=== PATIENT | male | born 1960 | race Asian ===

== ENCOUNTER 2016-12-22 17:38 | Outpatient (CLI) | payer OTHER ==
[~2016-12-22 17:38] MED LIST: ALBUTEROL0.083 % IN; BUDE1AER5 INH; CARDURA8 MG PO; CARV25TA PO; CLARITIN10 M1 PO; COZAAR100 MG PO; D32000 UNIT OR; FAMOTIDINE40 MG PO; FURO40TA93 PO; HYDRALAZINE50 MG PO; LEVEMIR SC; LISI20TA11 PO; MENS MULTI OR; NASONEX50 MCG/AC; NOVOLOG100 MG/ML SC; PANT40TA PO; PRED10TA27 PO; PROVENTIL IN; SIMV40TA57; STOOL SOFTNR100 MG OR; TIOTCAP2 INH
== END 2016-12-22 17:43 | disposition short-term general hospital (02) ==
LOC: AMB 17:38
DX: R06.02 Shortness of breath (principal); R07.89 Other chest pain
CPT/HCPCS: A0425; A0427

== ENCOUNTER 2016-12-22 17:44 | Emergency (ER) | payer OTHER ==
[~2016-12-22] VITALS: Ht 180.3 cm; Wt 130.6 kg
[2016-12-22 18:00] VITALS: TEMP 99
[2016-12-22 18:30] LABS: PLATELET COUNT 164 K/uL (142-355)
[2016-12-22 18:43] LABS: POTASSIUM 4.7 mmol/L (3.6-5.2)
[2016-12-22 19:37] VITALS: BP 143/88
== END 2016-12-22 20:00 | disposition home or self-care (01) ==
LOC: ED 17:44
DX: J44.1 Chronic obstructive pulmonary disease with (acute) exacerbation (principal); I27.2 Other secondary pulmonary hypertension; R60.9 Edema, unspecified; R06.02 Shortness of breath
CPT/HCPCS: 36415; 80053; 82550; 83880; 84484; 85027; 93005; 99283

== ENCOUNTER 2017-02-03 17:53 | Outpatient (CLI) | payer OTHER ==
[2017-02-03] MEDS ORDERED: SPIRONOLACT50 MG PO (18:28)
[2017-02-03] MEDS ORDERED: HUMALOG KWI100 MG/ML SC (18:32)
== END 2017-02-03 17:57 | disposition short-term general hospital (02) ==
LOC: AMB 17:53
DX: J44.1 Chronic obstructive pulmonary disease with (acute) exacerbation (principal); R06.02 Shortness of breath
CPT/HCPCS: A0425; A0427

== ENCOUNTER 2017-02-03 17:57 | Inpatient (IN) | payer OTHER ==
[~2017-02-03] VITALS: Ht 180.3 cm; Wt 136.1 kg
[2017-02-03 18:10] VITALS: BP 151/107; TEMP 98.6
[2017-02-03 18:22] LABS: PLATELET COUNT 173 K/uL (142-355)
[2017-02-03] MEDS ORDERED: SPIRONOLACT50 MG PO (18:28)
[2017-02-03] MEDS ORDERED: HUMALOG KWI100 MG/ML SC (18:32)
[2017-02-03 23:15] VITALS: BP 107/69; TEMP 97
[2017-02-03 23:30] VITALS: BP 90/60
[2017-02-03 23:45] VITALS: BP 80/45
[2017-02-04] VITALS (38 sets, daily range): BP systolic 81–142; BP diastolic 50–110; TEMP 94.5–98.9; Ht 180.3 cm; Wt 136.1 kg
[2017-02-04 02:12] LABS: PARTIAL THROMBOPLASTIN TIME 21.6 SECONDS (24.5-33.6)
[2017-02-04 02:13] LABS: PLATELET COUNT 116 K/uL (142-355)
[2017-02-04 02:31] LABS: POTASSIUM 6.5 mmol/L (3.6-5.2)
[2017-02-04 09:43] LABS: PLATELET COUNT 156 K/uL (142-355)
[2017-02-04 10:02] LABS: POTASSIUM 4.7 mmol/L (3.6-5.2)
[2017-02-05] VITALS (24 sets, daily range): BP systolic 114–156; BP diastolic 80–116; TEMP 97.7–99.9
[2017-02-05 06:13] LABS: PLATELET COUNT 172 K/uL (142-355)
[2017-02-05 06:30] LABS: POTASSIUM 3.7 mmol/L (3.6-5.2)
[2017-02-06] VITALS (24 sets, daily range): BP systolic 105–146; BP diastolic 78–107; TEMP 98.1–99
[2017-02-06 06:09] LABS: POTASSIUM 3.2 mmol/L (3.6-5.2)
[2017-02-06 06:27] LABS: PLATELET COUNT 176 K/uL (142-355)
[2017-02-07] VITALS (23 sets, daily range): BP systolic 90–150; BP diastolic 63–103; TEMP 98.1–98.8
[2017-02-07 06:40] LABS: POTASSIUM 4.4 mmol/L (3.6-5.2)
[2017-02-07 06:46] LABS: PLATELET COUNT 154 K/uL (142-355)
[2017-02-08] VITALS (21 sets, daily range): BP systolic 94–155; BP diastolic 65–99; TEMP 97.7–98.8
[2017-02-08 06:48] LABS: POTASSIUM 3.6 mmol/L (3.6-5.2)
[2017-02-08 07:03] LABS: PLATELET COUNT 154 K/uL (142-355)
[2017-02-09] VITALS (14 sets, daily range): BP systolic 104–166; BP diastolic 73–96; TEMP 98.1–99.9
[2017-02-09 06:22] LABS: PLATELET COUNT 162 K/uL (142-355)
== END 2017-02-09 18:55 | disposition short-term general hospital (02) | DRG 207 ==
LOC: ED 17:57 → ICU 21:10
PROVIDERS: Emergency Medicine
PROC: 5A1955Z Respiratory Ventilation, Greater than 96 Consecutive Hours (ICD-10-PCS; principal; 2017-02-03)
PROC: 0BH17EZ Insertion of Endotracheal Airway into Trachea, Via Natural or Artificial Opening (ICD-10-PCS; 2017-02-03)
PROC: 05H533Z Insertion of Infusion Device into Right Subclavian Vein, Percutaneous Approach (ICD-10-PCS; 2017-02-04)
PROC: 0B958ZX Drainage of Right Middle Lobe Bronchus, Via Natural or Artificial Opening Endoscopic, Diagnostic (ICD-10-PCS; 2017-02-09)
DX: J96.02 Acute respiratory failure with hypercapnia (principal); N17.8 Other acute kidney failure; E03.8 Other specified hypothyroidism; R91.8 Other nonspecific abnormal finding of lung field; E87.0 Hyperosmolality and hypernatremia; E88.09 Other disorders of plasma-protein metabolism, not elsewhere classified; D64.89 Other specified anemias; E87.5 Hyperkalemia; I12.9 Hypertensive chronic kidney disease with stage 1 through stage 4 chronic kidney disease, or unspecified chronic kidney disease; N18.3 Chronic kidney disease, stage 3 (moderate); H05.20 Unspecified exophthalmos; T68.XXXA Hypothermia, initial encounter; J44.1 Chronic obstructive pulmonary disease with (acute) exacerbation; J18.8 Other pneumonia, unspecified organism; I87.8 Other specified disorders of veins
CPT/HCPCS: 36415; 36591; 36600; 51702; 80053; 81000; 82550; 82570; 82805; 82948; 82962; 83001; 83002; 83036; 83735; 83880; 84145; 84300; 84439; 84443; 84481; 84484; 84540; 85027; 85610; 85730; 86376; 87040; 87070; 87205; 93005; 94003; 94664; 94760; 96361; 96365; 96372; 96375; 99285; C1768; J0330; J0696; J1265; J1650; J1940; J1956; J2060; J2250; J2270; J2310; J2405; J2930; J3475; J3480; J3490; J7040

== ENCOUNTER 2017-02-09 20:14 | Outpatient (CLI) | payer OTHER ==
[~2017-02-09 20:14] MED LIST changes: +HUMALOG KWI100 MG/ML SC; +SPIRONOLACT50 MG PO
== END 2017-02-09 23:05 | disposition short-term general hospital (02) ==
LOC: AMB 20:14
DX: J96.02 Acute respiratory failure with hypercapnia (principal); N17.8 Other acute kidney failure; E03.8 Other specified hypothyroidism; R91.8 Other nonspecific abnormal finding of lung field; E87.0 Hyperosmolality and hypernatremia; E88.09 Other disorders of plasma-protein metabolism, not elsewhere classified; D64.89 Other specified anemias; E87.5 Hyperkalemia; I12.9 Hypertensive chronic kidney disease with stage 1 through stage 4 chronic kidney disease, or unspecified chronic kidney disease; N18.3 Chronic kidney disease, stage 3 (moderate); H05.20 Unspecified exophthalmos; T68.XXXD Hypothermia, subsequent encounter; J44.1 Chronic obstructive pulmonary disease with (acute) exacerbation; J18.8 Other pneumonia, unspecified organism; I87.8 Other specified disorders of veins
CPT/HCPCS: A0425; A0427

== ENCOUNTER 2017-06-27 11:19 | Outpatient (CLI) | payer OTHER | END 2017-06-27 11:23 | disposition short-term general hospital (02) | LOC: AMB 11:19 | DX: R06.02 Shortness of breath (principal); J44.9 Chronic obstructive pulmonary disease, unspecified; R06.2 Wheezing; Z74.3 Need for continuous supervision | CPT/HCPCS: A0425; A0427 ==

== ENCOUNTER 2017-06-27 11:21 | Emergency (ER) | payer OTHER ==
[~2017-06-27] VITALS: Ht 180.3 cm; Wt 130.6 kg
[2017-06-27 11:37] VITALS: BP 137/93; TEMP 99
[2017-06-27 12:05] LABS: PLATELET COUNT 220 K/uL (142-355)
[2017-06-27 12:10] LABS: POTASSIUM 4.4 mmol/L (3.6-5.2); SODIUM 138 mmol/L (136-145)
== END 2017-06-27 15:52 | disposition home or self-care (01) ==
LOC: ED 11:21
DX: J44.9 Chronic obstructive pulmonary disease, unspecified (principal); J40 Bronchitis, not specified as acute or chronic; R00.0 Tachycardia, unspecified; E11.9 Type 2 diabetes mellitus without complications
CPT/HCPCS: 36415; 80053; 81000; 83036; 83880; 84484; 85027; 93005; 94640; 94664; 96360; 99283; J0696